=== PATIENT | female | born 1990 | race Caucasian/White ===

== ENCOUNTER 2017-10-30 13:14 | Inpatient (IN) | payer OTHER ==
[~2017-10-30] VITALS: Ht 167.6 cm; Wt 94.8 kg
== END 2017-11-05 08:54 | DRG 743 ==
LOC: O/R 11-02 05:07 → CIR.AMB 11-02 07:00 → OB/GYN 11-02 07:00 → EDSTATUS 11-02 07:00 → CIR.AMB 11-02 08:26 → OB/GYN 11-02 15:59
PROVIDERS: Obstetrics & Gynecology
PROC: 0UT00ZZ Resection of Right Ovary, Open Approach (ICD-10-PCS; 2017-11-02)
PROC: 0DNW0ZZ Release Peritoneum, Open Approach (ICD-10-PCS; 2017-11-02)
PROC: 0UT50ZZ Resection of Right Fallopian Tube, Open Approach (ICD-10-PCS; principal; 2017-11-02 07:00)
DX: D27.0 Benign neoplasm of right ovary (principal); N73.6 Female pelvic peritoneal adhesions (postinfective)